=== PATIENT | female | born 1945 ===

== ENCOUNTER 2017-10-29 17:42 | Emergency (ER) | payer MEDICARE ==
[2017-10-29 17:42] VITALS: BMI 31.1
[2017-10-29 18:10] VITALS: RESP 18
[2017-10-29] MEDS ORDERED: Iohexol 240 (50 ml) PO ONE (19:21)
[2017-10-29] MEDS ORDERED: Sodium Chloride 0.9% 1,000 ML IV STA (19:21)
--- NOTE | 2017-10-29 19:35 | ED PDOC ---
HPI:Nausea, Vomiting, Diarrhea Time Seen by Provider: 10/29/17 18:47 Chief Complaint (Nursing): Abdominal Pain Chief Complaint (Provider): Abdominal Pain History Per: Patient History/Exam Limitations: no limitations Onset/Duration Of Symptoms: Days (x 1) Current Symptoms Are (Timing): Still Present Quality Of Discomfort: "Pain" Additional Complaint(s): 72 year old female with a history of DM, asthma, HTN and high cholesterol, presents to the ED complaining of nonbloody vomiting and diarrhea associated with abdominal pain that all developed today. Patient reports stomach pain especially especially when she is vomiting. She states she did not eat anything new or out of the ordinary. Denies chest pain, difficulty breathing, back pain and any urinary symptoms. PMD: Dr. Dayday Cai MD Past Medical History Reviewed: Historical Data, Nursing Documentation, Vital Signs Vital Signs: Last Vital Signs Temp 99.4 F 10/29/17 18:06 Pulse 122 H 10/29/17 18:06 Resp 18 10/29/17 18:06 BP 113/79 10/29/17 18:06 Pulse Ox 99 10/29/17 18:06 - Medical History PMH: Asthma, HTN, Hypercholesterolemia Denies: Bipolar Disorder, Chronic Kidney Disease - Surgical History Surgical History: No Surg Hx - Family History Family History: States: Unknown Family Hx - Living Arrangements Living Arrangements: With Family - Immunization History Hx Tetanus Toxoid Vaccination: Yes - Home Medications Home Medications: Ambulatory Orders Medication Instructions Recorded Glimepiride [amaRYL] 1 tab PO DAILY 12/06/14 Omeprazole 20 mg PO DAILY 01/03/16 Fluticasone/Vilanterol [Breo 1 each IH DAILY 05/01/17 Ellipta 200-25 Mcg INH] Lisinopril [Zestril] 10 mg PO DAILY 05/01/17 Lovastatin 40 mg PO DAILY 05/01/17 MetFORMIN [glucOPHAGE] 1,000 mg PO BID 05/01/17 Mometasone Furoate [Asmanex] 220 mcg IH DAILY 05/01/17 Aspirin [Ecotrin] 1 tab PO DAILY 05/23/17 - Allergies Allergies/Adverse Reactions: Allergies Allergy/AdvReac Type Severity Reaction Status Date / Time Penicillins Allergy RASH Verified 08/08/15 19:43 Review of Systems ROS Statement: Except As Marked, All Systems Reviewed And Found Negative Gastrointestinal: Positive for: Nausea, Vomiting, Abdominal Pain, Diarrhea Physical Exam - Reviewed Nursing Documentation Reviewed: Yes Vital Signs Reviewed: Yes - Physical Exam Appears: Positive for: Non-toxic, No Acute Distress Head Exam: Positive for: ATRAUMATIC, NORMOCEPHALIC Skin: Positive for: Normal Color, Warm, Dry Eye Exam: Positive for: EOMI, Normal appearance, PERRL Neck: Positive for: Normal, Painless ROM, Supple Cardiovascular/Chest: Positive for: Regular Rate, Rhythm. Negative for: Murmur Respiratory: Positive for: Normal Breath Sounds. Negative for: Respiratory Distress Gastrointestinal/Abdominal: Positive for: Soft, Tenderness (mild diffuse tenderness) Back: Positive for: Normal Inspection. Negative for: L CVA Tenderness, R CVA Tenderness Extremity: Positive for: Normal ROM. Negative for: Deformity Neurologic/Psych: Positive for: Alert, Oriented. Negative for: Motor/Sensory Deficits - Laboratory Results Result Diagrams: 10/29/17 20:23 10/29/17 20:23 Interpretation Of Abn Labs: no acute - ECG O2 Sat by Pulse Oximetry: 99 (RA) Pulse Ox Interpretation: Normal - Progress ED Course And Treament: 2357: Stable. AAOx3. Pain free. Dr. Vee to take over care. Fu CT. Medical Decision Making Medical Decision Making: Time; 19:21 Impression: abdominal pain, nausea and vomiting Initial Plan: --VBG --Abd Pelvis CT --CMP --Lipase --CBC with differentials --Bentyl 10 mg PO --NS IV 1,000 mls/hr --Iohexol 50 ml PO --Zofran Inj 4 mg IV --Blood culture ---- Scribe Attestation: Documented by Rachael Mcclendon, acting as a scribe for Kem Alex MD Provider Scribe Attestation: All medical record entries made by the Scribe were at my direction and personally dictated by me. I have reviewed the chart and agree that the record accurately reflects my personal performance of the history, physical exam, medical decision making, and the department course for this patient. I have also personally directed, reviewed, and agree with the discharge instructions and disposition. Disposition - Clinical Impression Clinical Impression: Abdominal pain - Patient ED Disposition Is Patient to be Admitted: Transfer of Care Counseled Patient/Family Regarding: Studies Performed - Disposition Disposition: Transfer of Care Disposition Time: 23:58 Condition: FAIR Patient Signed Over To: Alfredo Vee
[2017-10-29] MEDS ORDERED: Iohexol 240 (50 ml) ONE (20:33)
[2017-10-29 20:41] LABS: BASO % 0.1 % (0.0-2.0); EOS # 0.6 K/uL (0.0-0.7); EOS % 5.7 % (0.0-4.0); HEMOGLOBIN 12.7 g/dL (12.0-16.0); LYMPH # 0.3 K/uL (1.0-4.3); LYMPH % 2.9 % (20.0-40.0); MEAN CELL VOLUME 88.2 fl (81.0-99.0); MEAN CORPUSCULAR HEMOGLOBIN 28.8 pg (27.0-31.0); MEAN CORPUSCULAR HGB CONC 32.6 g/dL (33.0-37.0); MEAN PLATELET VOLUME 9.9 fl (7.2-11.7); MONO # 0.4 K/uL (0.0-0.8); MONO % 3.5 % (0.0-10.0); NEUT % 87.8 % (50.0-75.0); NRBC % 0.1 % (0.0-0.0); PLATELET COUNT 273 K/uL (130-400); RBC 4.42 Mil/uL (3.80-5.20); RED CELL DISTRIBUTION WIDTH 15.2 % (11.5-14.5); WHITE BLOOD COUNT 10.2 K/uL (4.8-10.8)
[2017-10-29 20:59] LABS: ALB/GLOB RATIO 1.1 (1.0-2.1); ALBUMIN 4.1 g/dL (3.5-5.0); ALT/SGPT 50 U/L (9-52); AST/SGOT 40 U/L (14-36); BLOOD UREA NITROGEN 12 mg/dl (7-17); CALCIUM 9.1 mg/dL (8.4-10.2); GFR AFRICAN-AMERICAN > 60; GFR NON-AFRICAN AMERICAN > 60; LIPASE 28 U/L (23-300)
[2017-10-29 21:04] LABS: ANISOCYTOSIS SLIGHT; EOSINOPHIL 1 % (0-7); LYMPHOCYTE 3 % (20-50); MONOCYTE 3 % (0-10); NEUTROPHIL 93 % (42-75); PLATELET ESTIMATE NORMAL (NORMAL); TOTAL CELLS COUNTED 100
[2017-10-29 21:05] LABS: OVALOCYTES SLIGHT
[2017-10-29] MEDS ORDERED: Iohexol 300 100 ML IJ ONE (23:31)
[2017-10-29] MEDS ORDERED: Sodium Chloride 0.9% 100 ML ONE (23:31)
--- NOTE | 2017-10-30 00:17 | ED PDOC ---
- Laboratory Results Result Diagrams: 10/29/17 20:23 10/29/17 20:23 - ECG O2 Sat by Pulse Oximetry: 99 (RA) Medical Decision Making Medical Decision Makin Patient signed out to this provider from Dr. Alex pending CT and labs. 0030 CT FINDINGS: Lung bases: Minimal atelectasis/scarring. Heart: Borderline cardiomegaly. Coronary artery calcifications. Mediastinum: Small hiatal hernia. ABDOMEN: Liver: Fatty infiltration. Gallbladder and bile ducts: No calcified stones. No ductal dilation. Pancreas: No ductal dilation. No mass. Spleen: No splenomegaly. Adrenals: No mass. Kidneys and ureters: Too small to characterize lesion within LEFT kidney. No hydronephrosis. Stomach and bowel: Large small bowel diverticulum within left midabdomen. No associated inflammatory stranding. Scattered diverticula within colon. No associated inflammatory stranding. No definite mural thickening. No obstruction. PELVIS: Appendix: Normal caliber. No inflammation. Bladder: Unremarkable. Reproductive: Unremarkable as visualized. ABDOMEN and PELVIS: Intraperitoneal space: No significant fluid collection. No free air. Bones/joints: Degenerative changes of spine. Degenerative anterolisthesis of mid and lower lumbar spine. No acute fracture. Soft tissues: Tiny umbilical hernia containing fat. Small LEFT inguinal hernia containing fat. Vasculature: Moderate atherosclerotic disease. No aneurysm. Lymph nodes: No pathologically enlarged lymph nodes. IMPRESSION: 1. Diverticulosis without definite CT evidence of diverticulitis. 2. Incidental/non-acute findings are described above. 0110 Upon re-evaluation, patient appears well and is tolerating PO. Vitals are normal. Provider explained results to the patient and provided dietary precautions. Advised patient to follow up with PCP in 1-2 days. Patient is stable for discharge home. HR decreased, low grade temp, advised APAP. Dx: diverticulosis Condition: improved Scribe Attestation: Documented by Karin Bailey acting as a scribe for Alfredo Vee MD. Scribe Attestation: All medical record entries made by the Scribe were at my direction and personally dictated by me. I have reviewed the chart and agree that the record accurately reflects my personal performance of the history, physical exam, medical decision making, and the department course for this patient. I have also personally directed, reviewed, and agree with the discharge instructions and disposition. Disposition - Clinical Impression Clinical Impression: Diverticulosis - POA Present On Arrival: None - Disposition Referrals: Dayday Cai MD [Family Provider] - Disposition: Routine/Home Disposition Time: 01:10 Condition: IMPROVED Instructions: High Fiber Diet, Diverticulosis Forms: [facility] (Monegasque) Print Language: PRYDEINIG
--- NOTE | 2017-10-30 00:33 | CT ---
EXAM: CT Abdomen and Pelvis With Intravenous Contrast CLINICAL HISTORY: 72 years old, female; Pain and signs and symptoms; Vomiting and other: Diarrhea; Abdominal pain; Generalized; Additional info: Abd pain. Sent phy. Doc. TECHNIQUE: Axial computed tomography images of the abdomen and pelvis with intravenous contrast. All CT scans at this facility use one or more dose reduction techniques, viz.: automated exposure control; ma/kV adjustment per patient size (including targeted exams where dose is matched to indication; i.e. head); or iterative reconstruction technique. Coronal and sagittal reformatted images were created and reviewed. CONTRAST: 90 mL of [id number] administered intravenously. COMPARISON: No relevant prior studies available. FINDINGS: Lung bases: Minimal atelectasis/scarring. Heart: Borderline cardiomegaly. Coronary artery calcifications. Mediastinum: Small hiatal hernia. ABDOMEN: Liver: Fatty infiltration. Gallbladder and bile ducts: No calcified stones. No ductal dilation. Pancreas: No ductal dilation. No mass. Spleen: No splenomegaly. Adrenals: No mass. Kidneys and ureters: Too small to characterize lesion within LEFT kidney. No hydronephrosis. Stomach and bowel: Large small bowel diverticulum within left midabdomen. No associated inflammatory stranding. Scattered diverticula within colon. No associated inflammatory stranding. No definite mural thickening. No obstruction. PELVIS: Appendix: Normal caliber. No inflammation. Bladder: Unremarkable. Reproductive: Unremarkable as visualized. ABDOMEN and PELVIS: Intraperitoneal space: No significant fluid collection. No free air. Bones/joints: Degenerative changes of spine. Degenerative anterolisthesis of mid and lower lumbar spine. No acute fracture. Soft tissues: Tiny umbilical hernia containing fat. Small LEFT inguinal hernia containing fat. Vasculature: Moderate atherosclerotic disease. No aneurysm. Lymph nodes: No pathologically enlarged lymph nodes. IMPRESSION: 1. Diverticulosis without definite CT evidence of diverticulitis. 2. Incidental/non-acute findings are described above.
[2017-10-30 01:30] VITALS: PULSE 93; TEMP 100.3
[2017-10-30 01:33] VITALS: O2SAT 99
[2017-10-30 02:08] VITALS: BP 112/53
== END 2017-10-30 02:10 | disposition home or self-care (01) ==
LOC: H.ER 17:42
DX: K57.90 Diverticulosis of intestine, part unspecified, without perforation or abscess without bleeding (principal); E11.9 Type 2 diabetes mellitus without complications; E78.00 Pure hypercholesterolemia, unspecified; I10 Essential (primary) hypertension; J45.909 Unspecified asthma, uncomplicated; Z79.82 Long term (current) use of aspirin; Z79.84 Long term (current) use of oral hypoglycemic drugs; Z88.0 Allergy status to penicillin
CPT/HCPCS: 74177; 80053; 83690; 85025; 87040; 96374; 99283; J2405; J7040; Q9966; Q9967